=== PATIENT | male | born 1990 | race African-American/Black ===

== ENCOUNTER 2016-07-21 04:20 | Emergency (ER) | payer OTHER ==
--- NOTE | 2016-07-21 04:43 | PDOC ---
History of Present Illness - General Chief Complaint: Injury Stated Complaint: RIGHT THUMB SWELLING Time Seen by Provider: 07/21/16 04:37 History Source: Patient Exam Limitations: No Limitations - History of Present Illness Initial Comments: 07/21/16 04:41 26-year-old whose right hand dominant presents to the emergency department c/o pain to the right thumb. He states he slipped and fell onto the outstretched of her hand. Pain is described as 5/10 dull nonradiating intermittent discomfort. Pain is exacerbated on touch and alleviated minimally at rest. Patient denies extremity numbness or tingling sensation. Patient denies head/neck or back pain. No other complaints. Occurred: reports: just prior to arrival Upper Extremity Pain Location: right: thumb Method of Injury: reports: fell Modifying Factors: improves with: None Past History - Travel Traveled outside of the country in the last 30 days: No Close contact w/someone who was outside of country & ill: No - Past Medical History Allergies/Adverse Reactions: Allergies Allergy/AdvReac Type Severity Reaction Status Date / Time No Known Allergies Allergy Verified 07/21/16 04:32 Home Medications: Ambulatory Orders NK [No Known Home Medication] 07/21/16 - Immunization History Immunization Up to Date: Yes - Psycho/Social/Smoking Cessation Hx Anxiety: No Suicidal Ideation: No Smoking Status: No Smoking History: Never smoked Have you smoked in the past 12 months: No Number of Cigarettes Smoked Daily: 0 Information on smoking cessation initiated: No Hx Alcohol Use: No Drug/Substance Use Hx: No Substance Use Type: None Review of Systems - Review of Systems Able to Perform ROS?: Yes Comments:: 07/21/16 04:38 CONSTITUTIONAL: Absent: fever, chills, diaphoresis, generalized weakness, malaise, loss of appetite HEENT: Absent: rhinorrhea, nasal congestion, throat pain, throat swelling, difficulty swallowing, mouth swelling, ear pain, eye pain, visual Changes MUSCULOSKELETAL: +Right thumb pain/swelling Absent: myalgia, arthralgia, joint swelling SKIN: Absent: rash, itching, pallor HEMATOLOGIC/IMMUNOLOGIC: Absent: easy bleeding, easy bruising, lymphadenopathy, frequent infections NEUROLOGIC: Absent: headache, focal weakness or paresthesias, dizziness, unsteady gait, seizure, mental status changes, bladder or bowel incontinence PSYCHIATRIC: Absent: anxiety, depression, suicidal or homicidal ideation, hallucinations. 07/21/16 04:43 Is the patient limited [place]i proficient: No *Physical Exam - Vital Signs Last Vital Signs Temp Pulse Resp BP Pulse Ox 98.6 F 82 20 112/74 98 07/21/16 04:32 07/21/16 04:32 07/21/16 04:32 07/21/16 04:32 07/21/16 04:32 - Physical Exam Comments: 07/21/16 04:39 GENERAL: Well developed, well nourished. Awake and alert. No acute distress. HEENT: Normocephalic, atraumatic. PERRLA, EOMI. No conjunctival pallor. Sclera are non- icteric. Moist mucous membranes. Oropharynx is clear. NECK: Supple. Full ROM. No JVD. Carotid pulses 2+ and symmetric, without bruits. No thyromegaly. No lymphadenopathy. CARDIOVASCULAR: Regular rate and rhythm. No murmurs, rubs, or gallops. Distal pulses are 2+ and symmetric. PULMONARY: No evidence of respiratory distress. Lungs clear to auscultation bilaterally. No wheezing, rales or rhonchi. MUSCULOSKELETAL excluding right hand Normal range of motion at all joints. No bony deformities or tenderness. No CVA tenderness. EXTREMITIES: No cyanosis. No clubbing. No edema. No calf tenderness. SKIN: Warm and dry. Normal capillary refill. No rashes. No jaundice. NEUROLOGICAL: Alert, awake, appropriate. Cranial nerves 2-12 intact. No deficits to light touch and temperature in face, upper extremities and lower extremities. No motor deficits in the in face, upper extremities and lower extremities. Normoreflexic in the upper and lower extremities. Normal speech. Toes are down- going bilaterally. Gait is normal without ataxia. PSYCHIATRIC: Cooperative. Good eye contact. Appropriate mood and affect. 07/21/16 04:40 Right hand decreased R.O.M./pain +swelling thumb cap refill <2sec ED Treatment Course - RADIOLOGY Radiograph Interpretation: 07/21/16 04:43 XR right hand: *DC/Admit/Observation/Transfer Diagnosis at time of Disposition: Contusion of thumb Qualifiers: Encounter type: initial encounter Damage to nail status: without damage Laterality: right Qualified Code(s): S60.011A - Contusion of right thumb without damage to nail, initial encounter - Discharge Dispostion Disposition: HOME Condition at time of disposition: Stable Admit: No - Referrals Referrals: Darnell Ford MD [Primary Care Provider] - Thomas Sotomayor MD [Staff Physician] - - Patient Instructions Printed Discharge Instructions: DI for Contusion Additional Instructions: Ice: 20 mins on, 20 mins off for 48 hours while awake Tylenol/Motrin as needed for pain Follow up with your orthopedics or the one listed on your discharge Return to the ER for severe/persistent/worsening symptoms
[2016-07-21 06:08] VITALS: BP 112/74; PULSE 82; TEMP 98.6; BMI 29.2
== END 2016-07-21 05:28 | disposition home or self-care (01) ==
LOC: JER 04:20
DX: S60.011A Contusion of right thumb without damage to nail, initial encounter (principal); W01.0XXA Fall on same level from slipping, tripping and stumbling without subsequent striking against object, initial encounter; Y93.89 Activity, other specified; Y92.89 Other specified places as the place of occurrence of the external cause
CPT/HCPCS: 73110-TC-RT; 73130-TC-RT; 99282-25

== ENCOUNTER 2017-03-20 09:11 | Emergency (ER) | payer OTHER ==
[2017-03-20 09:17] VITALS: BP 145/76; PULSE 93; TEMP 97.7; BMI 35.6
[2017-03-20] MEDS ORDERED: IBUPROFEN 600 MG TABLET (FP) PO ONE ×2 (10:09→10:12)
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
== END 2017-03-20 10:48 | disposition home or self-care (01) ==
LOC: JERFT 09:11
DX: S50.02XA Contusion of left elbow, initial encounter (principal); V43.52XA Car driver injured in collision with other type car in traffic accident, initial encounter; Y93.89 Activity, other specified; Y92.410 Unspecified street and highway as the place of occurrence of the external cause
CPT/HCPCS: 73070-TC-LT; 99281-25

== ENCOUNTER 2020-10-14 23:13 | Emergency (ER) | payer BC, OTHER ==
[2020-10-14 23:16] VITALS: TEMP 98.2; BMI 26.6
[2020-10-15 01:14] VITALS: BP 152/90; PULSE 73
== END 2020-10-15 01:14 | disposition home or self-care (01) ==
LOC: JER 23:13
DX: I10 Essential (primary) hypertension (principal)
CPT/HCPCS: 71046-TC-FY; 93005; 93010; 99284-25

== ENCOUNTER 2020-10-17 19:39 | Emergency (ER) | payer BC ==
[2020-10-17 19:54] VITALS: TEMP 97.7; BMI 27.6
[2020-10-17 22:16] VITALS: BP 148/84; PULSE 70
== END 2020-10-17 22:14 | disposition home or self-care (01) ==
LOC: JER 19:39
DX: I10 Essential (primary) hypertension (principal)
CPT/HCPCS: 93005; 93010; 99283-25

== ENCOUNTER 2023-09-07 09:39 | Emergency (ER) | payer BC ==
[2023-09-07 09:48] VITALS: BP 151/80; PULSE 80; RESP 18; TEMP 98.5; BMI 28.8
[2023-09-07 11:08] LABS: BASO % 0.4 % (0-2.0); EOS % 2.3 % (0-4.5); HEMATOCRIT 51.7 % (35.4-49); LYMPH % 23.3 % (8-40); MCH 28.1 pg (25.7-33.7); MCHC 32.9 g/dl (32.0-35.9); MEAN CELL VOLUME 85.3 fl (80-96); MEAN PLT VOLUME 6.7 fl (7.5-11.1); MONO % 7.5 % (3.8-10.2); NEUT % 66.5 % (42.8-82.8); PLATELET COUNT 199 10^3/uL (134-434); RBC 6.07 M/mm3 (4.00-5.60); RDW 13.4 % (11.9-15.9); WHITE BLOOD COUNT 5.3 K/mm3 (4.0-10.0)
[2023-09-07 11:13] LABS: INR 0.96 (0.83-1.09)
[2023-09-07 11:17] LABS: ACTIVATED PTT 35.1 SECONDS (25.2-36.5)
[2023-09-07 11:26] LABS: POTASSIUM 4.1 mmol/L (3.5-5.1)
[2023-09-07 11:28] LABS: BLOOD UREA NITROGEN 11.5 mg/dL (7-18); CALCIUM 9.8 mg/dL (8.5-10.1)
[2023-09-07 11:29] LABS: ALBUMIN 4.9 g/dl (3.4-5.0)
[2023-09-07 11:32] LABS: CREATININE 1.1 mg/dL (0.55-1.3)
[2023-09-07 11:33] LABS: BILIRUBIN,TOTAL 1.2 mg/dL (0.2-1)
== END 2023-09-07 14:56 | disposition home or self-care (01) ==
LOC: JER 09:39
DX: K40.21 Bilateral inguinal hernia, without obstruction or gangrene, recurrent (principal)
CPT/HCPCS: 36415; 74177-TC; 80053; 83605; 85025; 85610; 85730; 99285-25; Q9967

== ENCOUNTER 2024-01-15 16:33 | Emergency (ER) | payer BC ==
[2024-01-15 16:42] VITALS: RESP 20; TEMP 98; BMI 29.2
[2024-01-15 18:55] VITALS: BP 137/89; PULSE 67
== END 2024-01-15 19:50 | disposition home or self-care (01) ==
LOC: JER 16:33
DX: M54.6 Pain in thoracic spine (principal)
CPT/HCPCS: 36415; 84484; 93005; 93010; 99284-25

== ENCOUNTER 2024-02-29 06:18 | Emergency (ER) | payer BC ==
[2024-02-29 06:29] VITALS: BP 149/98; PULSE 98; RESP 20; TEMP 98.4; BMI 28.8
[2024-02-29 08:06] LABS: PH,URINE 5.5 (5.0-8.0); URINE APPEARANCE CLEAR; URINE BILIRUBIN NEGATIVE (NEGATIVE); URINE COLOR YELLOW; URINE GLUCOSE (UA) NEGATIVE (NEGATIVE); URINE KETONE NEGATIVE (NEGATIVE); URINE LEUK ESTERASE NEGATIVE (NEGATIVE); URINE NITRITE NEGATIVE (NEGATIVE); URINE PROTEIN NEGATIVE (NEGATIVE); URINE UROBILINOGEN 0.2 mg/dL (0.2-1.0)
== END 2024-02-29 08:18 | disposition home or self-care (01) ==
LOC: JER 06:18
DX: M54.50 Low back pain, unspecified (principal); R35.0 Frequency of micturition
CPT/HCPCS: 81003; 87086; 99283-25